=== PATIENT | female | born 1970 | race Caucasian/White ===

== ENCOUNTER 2020-05-20 17:22 | Observation (INO) | payer BC, MEDICAID ==
[2020-05-20] MEDS ORDERED: Sodium Chloride 0.9% 1,000 ML IV ONE (17:28)
[2020-05-20] MEDS ORDERED: HYDROmorphone 2 MG/ML SDV IVPUSH ONE (17:28)
[2020-05-20] MEDS ORDERED: Sodium Chloride 0.9% 10 ML Syringe FLUSH PRN (17:28)
[2020-05-20] MEDS ORDERED: Ondansetron 4 MG/2 ML SDV IVPUSH ONE (17:28)
--- NOTE | 2020-05-20 17:39 | EDM.PDOC ---
ED HPI GENERAL MEDICAL PROBLEM - General Chief Complaint: Abdominal Pain Stated Complaint: ABDOMINAL PAIN Time Seen by Provider: 05/20/20 17:30 Source of Information: Reports: Patient History Limitations: Reports: Other (Agitated) - History of Present Illness INITIAL COMMENTS - FREE TEXT/NARRATIVE: Presents with N/V/D and low abdominal pain since this morning. Patient admits to smoking methamphetamine @2 days ago. Denies IVDA or alcohol consumption. Prior surgical history includes appendectomy and knee surgeries x 6. PMHx includes rheumatoid arthritis and acute non-ischemic cardiomyopathy (08/2018). Endorses low back pain x 2 months. Denies chest pain. Onset: Today Location: Reports: Abdomen Quality: Reports: Ache Severity: Moderate - Related Data Allergies Allergy/AdvReac Type Severity Reaction Status Date / Time meperidine HCl [From Demerol] Allergy Unknown Cannot Verified 05/20/20 18:13 Remember Sulfa (Sulfonamide Allergy Unknown Cannot Verified 05/20/20 18:13 Antibiotics) Remember Home Meds: Home Meds Bumetanide 1 tab PO DAILY 09/18/18 [History] Norethindrone-Ethin. Estradiol [Nortrel 7-7-7-28 Tablet] 1 tab PO DAILY 09/18/18 [History] Past Medical History Cardiovascular History: Reports: Heart Failure (non-ischemic 08/2018). Denies: CAD [employer] History: Reports: Immunologic History: Reports: Other (See Below) (RA) - Past Surgical History Respiratory Surgical History: Reports: None Social & Family History - Family History Family Medical History: Noncontributory - Caffeine Use Caffeine Use: Reports: Soda - Recreational Drug Use Recreational Drug Use: Yes Recreational Drug Type: Reports: Amphetamines (Speed) ED ROS GENERAL - Review of Systems Review Of Systems: Comprehensive ROS is negative, except as noted in HPI. ED EXAM, GI/ABD - Physical Exam Exam: See Below Exam Limited By: No Limitations General Appearance: Alert, WD/WN, No Apparent Distress Throat/Mouth: No Airway Compromise Head: Atraumatic, Normocephalic Respiratory/Chest: No Respiratory Distress, Lungs Clear, Normal Breath Sounds Cardiovascular: Regular Rate, Rhythm, No Edema, No Gallop, No Murmur GI/Abdominal Exam: Normal Bowel Sounds, Soft, No Distention, Tender (suprapubic) Back Exam: CVA Tenderness (R), CVA Tenderness (L) Extremities: Normal Range of Motion, No Pedal Edema Neurological: Alert, Normal Cognition, No Motor/Sensory Deficits Psychiatric: Other (Agitated) Skin Exam: Warm, Dry, Intact Course - Vital Signs Last Recorded V/S: Last Vital Signs Temp 36.6 C 05/20/20 17:30 Pulse 90 05/20/20 17:30 Resp 15 05/20/20 17:30 BP 136/100 H 05/20/20 17:30 Pulse Ox 100 05/20/20 17:30 - Orders/Labs/Meds Orders: Active Orders 24 hr Category Date Time Status Jung Catheter Insertion [Insert Urinary Catheter] [OM. Care 05/20/20 18:15 Ordered PC] Q24H Urinary Catheter Assessment [RC] QSHIFT Care 05/20/20 18:02 Active Abdomen Pelvis wo Cont [CT] Stat Exams 05/20/20 18:35 Taken Head wo Cont [CT] Stat Exams 05/20/20 18:35 Taken CULTURE URINE [RM] Stat Lab 05/20/20 18:24 Ordered Potassium Chloride [KCL 20 MEQ in Water 100 ML] 20 meq Med 05/20/20 18:17 Active Premix Bag 1 bag IV ONETIME Sodium Chloride 0.9% [Saline Flush] Med 05/20/20 17:28 Active 10 ml FLUSH ASDIRECTED PRN Saline Lock Insert [OM.PC] Routine Oth 05/20/20 17:28 Ordered Medication Orders Potassium Chloride 20 meq/ (Premix) 100 mls @ 50 mls/hr IV ONETIME ONE Stop: 05/20/20 20:16 Last Admin: 05/20/20 19:19 Dose: 50 mls/hr Documented by: OCTAVIO Sodium Chloride (Saline Flush) 10 ml FLUSH ASDIRECTED PRN PRN Reason: Keep Vein Open Last Admin: 05/20/20 19:31 Dose: 10 ml Documented by: OCTAVIO Labs: Laboratory Tests 05/20/20 05/20/20 05/20/20 Range/Units 17:40 17:40 17:40 WBC 8.9 (4.5-12.0) X10-3/uL RBC 4.75 (3.23-5.20) x10(6)uL Hgb 13.1 (11.5-15.5) g/dL Hct 40.7 (30.0-51.3) % MCV 85.6 (80-96) fL MCH 27.5 L (27.7-33.6) pg MCHC 32.2 (32.2-35.4) g/dL RDW 13.3 (11.5-15.5) % Plt Count 368 (125-369) X10(3)uL MPV 8.0 (7.4-10.4) fL Neut % (Auto) 70.3 (46-82) % Lymph % (Auto) 19.5 (13-37) % Coleman % (Auto) 9.3 (4-12) % Eos % (Auto) 1 (1.0-5.0) % Baso % (Auto) 0 (0-2) % Neut # (Auto) 6.3 (1.6-8.3) # Lymph # (Auto) 1.7 (0.6-5.0) # Coleman # (Auto) 0.8 (0.0-1.3) # Eos # (Auto) 0.1 (0.0-0.8) # Baso # (Auto) 0.0 (0.0-0.2) # Sodium 141 (135-145) mmol/L Potassium 2.9 L (3.5-5.3) mmol/L Chloride 103 (100-110) mmol/L Carbon Dioxide 25 (21-32) mmol/L BUN 12 (7-18) mg/dL Creatinine 1.1 H (0.55-1.02) mg/dL Est Cr Clr Drug Dosing TNP Estimated GFR (MDRD) 53 L (>60) BUN/Creatinine Ratio 10.9 (9-20) Glucose 93 (80-116) mg/dL Calcium 8.9 (8.6-10.2) mg/dL Magnesium 2.0 (1.8-2.5) mg/dL Total Bilirubin 0.7 (0.1-1.3) mg/dL AST 24 D (5-25) IU/L ALT 7 L D (12-36) U/L Alkaline Phosphatase 73 (56-112) IU/L Total Protein 7.4 (6.0-8.0) g/dL Albumin 3.9 (3.5-5.2) g/dL Globulin 3.5 g/dL Albumin/Globulin Ratio 1.1 Lipase (73-393) U/L Urine Color (YELLOW) Urine Appearance (CLEAR) Urine pH (5.0-6.5) Ur Specific [place] (1.010-1.025) Urine Protein (NEGATIVE) mg/dL Urine Glucose (UA) (NORMAL) mg/dL Urine Ketones (NEGATIVE) mg/dL Urine Occult Blood (NEGATIVE) Urine Nitrite (NEGATIVE) Urine Bilirubin (NEGATIVE) Urine Urobilinogen (NEGATIVE) mg/dL Ur Leukocyte Esterase (NEGATIVE) Urine RBC (0-5) Urine WBC (0-5) Ur Squamous Epith Cells (NS,R,O) Calcium Oxalate Crystal (NS) Urine Bacteria (NS) Urine HCG, Qual (NEGATIVE) Urine Opiates Screen (NEGATIVE) Ur Oxycodone Screen (NEGATIVE) Ur Propoxyphene Screen (NEGATIVE) Ur Barbituates Screen (NEGATIVE) Ur Tricyclics Screen (NEGATIVE) Ur Phencyclidine Scrn (NEGATIVE) Ur Amphetamine Screen (NEGATIVE) Urine MDMA Screen (NEGATIVE) U Benzodiazepines Scrn (NEGATIVE) U Cocaine Metab Screen (NEGATIVE) U Marijuana (THC) Screen (NEGATIVE) Ethyl Alcohol (<0.03) % 05/20/20 05/20/20 05/20/20 Range/Units 17:40 18:15 18:15 WBC (4.5-12.0) X10-3/uL RBC (3.23-5.20) x10(6)uL Hgb (11.5-15.5) g/dL Hct (30.0-51.3) % MCV (80-96) fL MCH (27.7-33.6) pg MCHC (32.2-35.4) g/dL RDW (11.5-15.5) % Plt Count (125-369) X10(3)uL MPV (7.4-10.4) fL Neut % (Auto) (46-82) % Lymph % (Auto) (13-37) % Coleman % (Auto) (4-12) % Eos % (Auto) (1.0-5.0) % Baso % (Auto) (0-2) % Neut # (Auto) (1.6-8.3) # Lymph # (Auto) (0.6-5.0) # Coleman # (Auto) (0.0-1.3) # Eos # (Auto) (0.0-0.8) # Baso # (Auto) (0.0-0.2) # Sodium (135-145) mmol/L Potassium (3.5-5.3) mmol/L Chloride (100-110) mmol/L Carbon Dioxide (21-32) mmol/L BUN (7-18) mg/dL Creatinine (0.55-1.02) mg/dL Est Cr Clr Drug Dosing Estimated GFR (MDRD) (>60) BUN/Creatinine Ratio (9-20) Glucose (80-116) mg/dL Calcium (8.6-10.2) mg/dL Magnesium (1.8-2.5) mg/dL Total Bilirubin (0.1-1.3) mg/dL AST (5-25) IU/L ALT (12-36) U/L Alkaline Phosphatase (56-112) IU/L Total Protein (6.0-8.0) g/dL Albumin (3.5-5.2) g/dL Globulin g/dL Albumin/Globulin Ratio Lipase 119 (73-393) U/L Urine Color Yellow (YELLOW) Urine Appearance Clear (CLEAR) Urine pH 6.0 (5.0-6.5) Ur Specific [place] 1.015 (1.010-1.025) Urine Protein Negative (NEGATIVE) mg/dL Urine Glucose (UA) Normal (NORMAL) mg/dL Urine Ketones 15 H (NEGATIVE) mg/dL Urine Occult Blood Negative (NEGATIVE) Urine Nitrite Positive H (NEGATIVE) Urine Bilirubin Negative (NEGATIVE) Urine Urobilinogen Normal (NEGATIVE) mg/dL Ur Leukocyte Esterase Large H (NEGATIVE) Urine RBC 5-10 H (0-5) Urine WBC 10-20 H (0-5) Ur Squamous Epith Cells Occasional (NS,R,O) Calcium Oxalate Crystal Few H (NS) Urine Bacteria Moderate H (NS) Urine HCG, Qual Negative (NEGATIVE) Urine Opiates Screen (NEGATIVE) Ur Oxycodone Screen (NEGATIVE) Ur Propoxyphene Screen (NEGATIVE) Ur Barbituates Screen (NEGATIVE) Ur Tricyclics Screen (NEGATIVE) Ur Phencyclidine Scrn (NEGATIVE) Ur Amphetamine Screen (NEGATIVE) Urine MDMA Screen (NEGATIVE) U Benzodiazepines Scrn (NEGATIVE) U Cocaine Metab Screen (NEGATIVE) U Marijuana (THC) Screen (NEGATIVE) Ethyl Alcohol < 0.03 (<0.03) % 05/20/20 Range/Units 18:15 WBC (4.5-12.0) X10-3/uL RBC (3.23-5.20) x10(6)uL Hgb (11.5-15.5) g/dL Hct (30.0-51.3) % MCV (80-96) fL MCH (27.7-33.6) pg MCHC (32.2-35.4) g/dL RDW (11.5-15.5) % Plt Count (125-369) X10(3)uL MPV (7.4-10.4) fL Neut % (Auto) (46-82) % Lymph % (Auto) (13-37) % Coleman % (Auto) (4-12) % Eos % (Auto) (1.0-5.0) % Baso % (Auto) (0-2) % Neut # (Auto) (1.6-8.3) # Lymph # (Auto) (0.6-5.0) # Coleman # (Auto) (0.0-1.3) # Eos # (Auto) (0.0-0.8) # Baso # (Auto) (0.0-0.2) # Sodium (135-145) mmol/L Potassium (3.5-5.3) mmol/L Chloride (100-110) mmol/L Carbon Dioxide (21-32) mmol/L BUN (7-18) mg/dL Creatinine (0.55-1.02) mg/dL Est Cr Clr Drug Dosing Estimated GFR (MDRD) (>60) BUN/Creatinine Ratio (9-20) Glucose (80-116) mg/dL Calcium (8.6-10.2) mg/dL Magnesium (1.8-2.5) mg/dL Total Bilirubin (0.1-1.3) mg/dL AST (5-25) IU/L ALT (12-36) U/L Alkaline Phosphatase (56-112) IU/L Total Protein (6.0-8.0) g/dL Albumin (3.5-5.2) g/dL Globulin g/dL Albumin/Globulin Ratio Lipase (73-393) U/L Urine Color (YELLOW) Urine Appearance (CLEAR) Urine pH (5.0-6.5) Ur Specific [place] (1.010-1.025) Urine Protein (NEGATIVE) mg/dL Urine Glucose (UA) (NORMAL) mg/dL Urine Ketones (NEGATIVE) mg/dL Urine Occult Blood (NEGATIVE) Urine Nitrite (NEGATIVE) Urine Bilirubin (NEGATIVE) Urine Urobilinogen (NEGATIVE) mg/dL Ur Leukocyte Esterase (NEGATIVE) Urine RBC (0-5) Urine WBC (0-5) Ur Squamous Epith Cells (NS,R,O) Calcium Oxalate Crystal (NS) Urine Bacteria (NS) Urine HCG, Qual (NEGATIVE) Urine Opiates Screen Negative (NEGATIVE) Ur Oxycodone Screen Negative (NEGATIVE) Ur Propoxyphene Screen Negative (NEGATIVE) Ur Barbituates Screen Negative (NEGATIVE) Ur Tricyclics Screen Negative (NEGATIVE) Ur Phencyclidine Scrn Negative (NEGATIVE) Ur Amphetamine Screen Positive H (NEGATIVE) Urine MDMA Screen Negative (NEGATIVE) U Benzodiazepines Scrn Negative (NEGATIVE) U Cocaine Metab Screen Negative (NEGATIVE) U Marijuana (THC) Screen Negative (NEGATIVE) Ethyl Alcohol (<0.03) % Meds: Medications Generic Name Dose Route Start Last Admin Trade Name Freq PRN Reason Stop Dose Admin Potassium Chloride 20 meq/ 100 mls @ 50 mls/hr 05/20/20 18:17 05/20/20 19:19 Premix IV 05/20/20 20:16 50 mls/hr ONETIME ONE Administration Sodium Chloride 10 ml 05/20/20 17:28 05/20/20 19:31 Saline Flush FLUSH 10 ml ASDIRECTED PRN Administration Keep Vein Open Discontinued Medications Generic Name Dose Route Start Last Admin Trade Name Freq PRN Reason Stop Dose Admin Ceftriaxone Sodium 1 gm 05/20/20 18:25 05/20/20 19:19 Rocephin IVPUSH 05/20/20 18:26 1 gm ONETIME ONE Administration Hydromorphone HCl 0.5 mg 05/20/20 17:28 05/20/20 17:34 Dilaudid IVPUSH 05/20/20 17:29 0.5 mg ONETIME ONE Administration Sodium Chloride 1,000 mls @ 999 mls/hr 05/20/20 17:28 05/20/20 18:16 Normal Saline IV 05/20/20 18:28 50 mls/hr .BOLUS ONE Infusion Lorazepam 1 mg 05/20/20 17:56 05/20/20 18:00 Ativan IVPUSH 05/20/20 17:57 1 mg ONETIME ONE Administration Lorazepam Confirm 05/20/20 17:58 05/20/20 19:16 Ativan Administered 05/20/20 17:59 Not Given Dose 2 mg .ROUTE .STK-MED ONE Ondansetron HCl 4 mg 05/20/20 17:28 05/20/20 17:49 Zofran IVPUSH 05/20/20 17:29 4 mg ONETIME ONE Administration - Radiology Interpretation Free Text/Narrative:: CT of the abdomen and pelvis. No intravenous contrast. Coronal/sagittal reconstruction images. FINDINGS: Lung bases: There is bibasilar dependent atelectasis. There is no acute airspace disease. There is no basilar pneumothorax. Abdomen/pelvis: No solid hepatic mass. The hepatic morphology is normal. There is no common bile duct stone or mass. The spleen size is normal. There is an indeterminate, hyperdense lesion in the left kidney, superior pole, which measures 7 mm. This is seen on image set 38, series 2. This could represent a hemorrhagic cyst. There are indeterminate calcifications present in the left adrenal gland. This is seen on image 36, series 2. There is no obstructive urolith. The urinary bladder is normal. There is an indeterminate pelvic calcification, which is seen best on image 129, series 2. There is no free intraperitoneal air. There is no evidence for a small bowel or colonic obstruction. There is no pneumatosis. There is no portal venous gas. There is no drainable fluid collection or pneumoperitoneum. The patient is reportedly post appendectomy. There are no right lower quadrant inflammatory changes. There are nonenlarged lymph nodes present in the pelvis. There is no pelvic sidewall lymphadenopathy. The retroperitoneum and gastrohepatic ligament are normal. The bone windows demonstrate a sclerotic lesion in the right sacral ala, which appears benign, measuring 5 mm. There are no suspicious bone lesions by CT. On sagittal reconstruction images, there are deformities present at the superior endplates of T12 and L1. These could represent compression deformities or Schmorl`s nodes. IMPRESSION: 1. There is no small bowel or colonic obstruction. 2. There is no pneumoperitoneum or drainable fluid collection. 3. Hyperdense, sub centimeter lesion in the superior pole of the left kidney. This may represent a hemorrhagic cyst. Ultrasound is suggested on a nonemergent basis. 4. Compression deformities at the thoracolumbar junction. Middle and posterior columns appear intact. Suggest correlation with physical exam findings to determine acuity. Dictated by Anish Overton MD @ 05/20/2020 7:33:[address] head without contrast. COMPARISON: None FINDINGS: CSF spaces: Within normal limits for age. Brain parenchyma: The mccormick-white differentiation is normal. No sign of mass, hemorrhage, or midline shift. Skull base and calvarium: The visualized paranasal sinuses and mastoid air cells demonstrate no acute or significant findings. The visualized orbits are grossly unremarkable. No skull fractures. IMPRESSION: Unremarkable noncontrast head CT. Please note that all CT scans at this facility use dose modulation, iterative reconstruction, and/or weight-based dosing when appropriate to reduce radiation dose to as low as reasonably achievable. Dictated by Radha Adams MD @ May 20 2020 7:30PM - Re-Assessments/Exams Free Text/Narrative Re-Assessment/Exam: 05/20/20 17:55 Pain and agitation did not improve after Dilaudid 0.5mg IV. 05/20/20 18:20 Agitation improved after Ativan 1mg IV, however Sa02 dropped to 72% RA with RR 5-7. Sa02 improved to 100% on 4L 02 and RR increased to 17 with stimulation. 05/20/20 19:40 Patient somnolent. BP 120/68, HR 81, RR 18, Sa02 100% on 2L O2. Departure - Departure Time of Disposition: 19:43 Disposition: Refer to Observation Condition: Fair Clinical Impression: Gastroenteritis, Methamphetamine abuse, Metabolic encephalopathy, Hypokalemia UTI (urinary tract infection) Qualifiers: Urinary tract infection type: acute cystitis Hematuria presence: with hematuria Qualified Code(s): N30.01 - Acute cystitis with hematuria - Discharge Information *PRESCRIPTION DRUG MONITORING PROGRAM REVIEWED*: Yes *COPY OF PRESCRIPTION DRUG MONITORING REPORT IN PATIENT RASHAAD: Not Applicable Referrals: PCP,None [Primary Care Provider] - Forms: ED Department Discharge Sepsis Event Note (ED) - Focused Exam Vital Signs: Vital Signs Temp Pulse Resp BP Pulse Ox 05/20/20 17:30 36.6 C 90 15 136/100 H 100 - My Orders Last 24 Hours: My Active Orders 05/20/20 17:28 Sodium Chloride 0.9% [Saline Flush] 10 ml FLUSH ASDIRECTED PRN Saline Lock Insert [OM.PC] Routine 05/20/20 18:02 Urinary Catheter Assessment [RC] QSHIFT 05/20/20 18:15 Jung Catheter Insertion [Insert Urinary Catheter] [OM.PC] Q24H 05/20/20 18:17 Potassium Chloride [KCL 20 MEQ in Water 100 ML] 20 meq Premix Bag 1 bag IV ONETIME 05/20/20 18:24 CULTURE URINE [RM] Stat 05/20/20 18:35 Abdomen Pelvis wo Cont [CT] Stat Head wo Cont [CT] Stat - Assessment/Plan Last 24 Hours: My Active Orders 05/20/20 17:28 Sodium Chloride 0.9% [Saline Flush] 10 ml FLUSH ASDIRECTED PRN Saline Lock Insert [OM.PC] Routine 05/20/20 18:02 Urinary Catheter Assessment [RC] QSHIFT 05/20/20 18:15 Jung Catheter Insertion [Insert Urinary Catheter] [OM.PC] Q24H 05/20/20 18:17 Potassium Chloride [KCL 20 MEQ in Water 100 ML] 20 meq Premix Bag 1 bag IV ONETIME 05/20/20 18:24 CULTURE URINE [RM] Stat 05/20/20 18:35 Abdomen Pelvis wo Cont [CT] Stat Head wo Cont [CT] Stat
[2020-05-20] MEDS ORDERED: LORazepam 2 MG/ML SDV IVPUSH ONE (17:56)
[2020-05-20] MEDS ORDERED: LORazepam 2 MG/ML SDV ONE (17:58)
[2020-05-20] MEDS ORDERED: Potassium Chloride 20 MEQ in Premix Bag 1 BAG IV ONE (18:17)
[2020-05-20] MEDS ORDERED: cefTRIAXone 1 GM Vial IVPUSH ONE (18:25)
[2020-05-20] MEDS ORDERED: Ondansetron 4 MG/2 ML SDV IV PRN (19:57)
[2020-05-20] MEDS ORDERED: LORazepam 2 MG/ML SDV IV PRN (19:57)
[2020-05-20] MEDS ORDERED: D5 1/2 NS w/ 20 mEq/L KCl 1,000 ML IV SCH (21:00)
--- NOTE | 2020-05-21 08:04 | PCM.HP.2 ---
H&P History of Present Illness - General Date of Service: 05/21/20 Admit Problem/Dx: Admission Diagnosis/Problem Admission Diagnosis/Problem Gastroenteritis Source of Information: Patient, EMS Notes Reviewed History Limitations: Reports: No Limitations - History of Present Illness Initial Comments - Free Text/Narative: This is a 49-year-old female patient that came to the ER with intense abdominal pain, vomiting and diarrhea. She says she felt cold but no fevers. She had no exposures. She was evaluated in the ER and admitted. She was found to have a UTI, hypokalemia. Pain control was difficult from the ER notes. Patient feels little bit better today. She has a history of using methamphetamine 2 days ago. She says she has used in the past but is getting less and less per she's never been to treatment. She is alcohol occasionally no other illegal drugs she doesn't smoke. She says she is gone through menopause but is wondering if she was she is sexually active somewhat so that's when she came to the ER last night. Urine was negative. - Related Data Allergies/Adverse Reactions: Allergies Allergy/AdvReac Type Severity Reaction Status Date / Time meperidine HCl [From Demerol] Allergy Unknown Cannot Verified 05/20/20 18:13 Remember Sulfa (Sulfonamide Allergy Unknown Cannot Verified 05/20/20 18:13 Antibiotics) Remember Home Medications: Home Meds Bumetanide 1 tab PO DAILY 09/18/18 [History] Norethindrone-Ethin. Estradiol [Nortrel 7-7-7-28 Tablet] 1 tab PO DAILY 09/18/18 [History] Past Medical History - Past Health History Medical/Surgical History: Denies Medical/Surgical History Cardiovascular History: Reports: Heart Failure Respiratory History: Reports: SOB [employer] History: Reports: Psychiatric History: Reports: ADD Immunologic History: Reports: Other (See Below) - Past Surgical History Respiratory Surgical History: Reports: None Social & Family History - Family History Family Medical History: Noncontributory - Tobacco Use Smoking Status *Q: Current Status Unknown Tobacco Use Comment: unable to obtain clear information as of this time but patient denies smoking. Second Hand Smoke Exposure: Yes - Caffeine Use Caffeine Use: Reports: Soda Caffeine Use Comment: unable to obtain this information as of this time. - Recreational Drug Use Recreational Drug Use: Yes Recreational Drug Type: Reports: Amphetamines (Speed) H&P Review of Systems - Review of Systems: Review Of Systems: See Below General: Reports: Chills, Weakness. Denies: Fever HEENT: Reports: No Symptoms Pulmonary: Reports: No Symptoms Cardiovascular: Reports: No Symptoms Gastrointestinal: Reports: Abdominal Pain, Diarrhea, Nausea, Vomiting. Denies: Black Stool, Bloody Stool, Hematemesis Genitourinary: Reports: No Symptoms Musculoskeletal: Reports: No Symptoms Skin: Reports: No Symptoms Psychiatric: Reports: No Symptoms Neurological: Reports: No Symptoms Hematologic/Lymphatic: Reports: No Symptoms Immunologic: Reports: No Symptoms Exam - Exam Exam: See Below - Vital Signs Vital Signs: Last Vital Signs Temp 97.4 F 05/21/20 00:17 Pulse 72 05/21/20 00:17 Resp 16 05/21/20 00:17 BP 144/56 H 05/21/20 00:17 Pulse Ox 100 05/21/20 07:13 Weight: 98 lb - Exam General: Alert, Oriented, Cooperative HEENT: Hearing Intact, Posterior Pharynx Clear, TMs Clear, Other (Gingiva normal) Neck: Supple, Trachea Midline Lungs: Clear to Auscultation, Normal Respiratory Effort Cardiovascular: Regular Rate, Regular Rhythm. No: Systolic Murmur GI/Abdominal Exam: Normal Bowel Sounds, Guarding, Tender (Mildly to palpation). No: Rigid Extremities: No Pedal Edema Neurological: Normal Speech, Normal Tone Neuro Extensive - Mental Status: Alert, Oriented x3, Normal Mood/Affect, Normal Cognition, Memory Intact - Patient Data Lab Results Last 24 hrs: Laboratory Results - last 24 hr 05/20/20 05/20/20 05/20/20 Range/Units 17:40 17:40 17:40 WBC 8.9 (4.5-12.0) X10-3/uL RBC 4.75 (3.23-5.20) x10(6)uL Hgb 13.1 (11.5-15.5) g/dL Hct 40.7 (30.0-51.3) % MCV 85.6 (80-96) fL MCH 27.5 L (27.7-33.6) pg MCHC 32.2 (32.2-35.4) g/dL RDW 13.3 (11.5-15.5) % Plt Count 368 (125-369) X10(3)uL MPV 8.0 (7.4-10.4) fL Neut % (Auto) 70.3 (46-82) % Lymph % (Auto) 19.5 (13-37) % [place] % (Auto) 9.3 (4-12) % Eos % (Auto) 1 (1.0-5.0) % Baso % (Auto) 0 (0-2) % Neut # (Auto) 6.3 (1.6-8.3) # Lymph # (Auto) 1.7 (0.6-5.0) # [place]royo # (Auto) 0.8 (0.0-1.3) # Eos # (Auto) 0.1 (0.0-0.8) # Baso # (Auto) 0.0 (0.0-0.2) # Sodium 141 (135-145) mmol/L Potassium 2.9 L (3.5-5.3) mmol/L Chloride 103 (100-110) mmol/L Carbon Dioxide 25 (21-32) mmol/L BUN 12 (7-18) mg/dL Creatinine 1.1 H (0.55-1.02) mg/dL Est Cr Clr Drug Dosing TNP Estimated GFR (MDRD) 53 L (>60) BUN/Creatinine Ratio 10.9 (9-20) Glucose 93 (80-116) mg/dL Calcium 8.9 (8.6-10.2) mg/dL Magnesium 2.0 (1.8-2.5) mg/dL Total Bilirubin 0.7 (0.1-1.3) mg/dL AST 24 D (5-25) IU/L ALT 7 L D (12-36) U/L Alkaline Phosphatase 73 (56-112) IU/L Total Protein 7.4 (6.0-8.0) g/dL Albumin 3.9 (3.5-5.2) g/dL Globulin 3.5 g/dL Albumin/Globulin Ratio 1.1 Lipase (73-393) U/L Urine Color (YELLOW) Urine Appearance (CLEAR) Urine pH (5.0-6.5) Ur Specific [place] (1.010-1.025) Urine Protein (NEGATIVE) mg/dL Urine Glucose (UA) (NORMAL) mg/dL Urine Ketones (NEGATIVE) mg/dL Urine Occult Blood (NEGATIVE) Urine Nitrite (NEGATIVE) Urine Bilirubin (NEGATIVE) Urine Urobilinogen (NEGATIVE) mg/dL Ur Leukocyte Esterase (NEGATIVE) Urine RBC (0-5) Urine WBC (0-5) Ur Squamous Epith Cells (NS,R,O) Calcium Oxalate Crystal (NS) Urine Bacteria (NS) Urine HCG, Qual (NEGATIVE) Urine Opiates Screen (NEGATIVE) Ur Oxycodone Screen (NEGATIVE) Ur Propoxyphene Screen (NEGATIVE) Ur Barbituates Screen (NEGATIVE) Ur Tricyclics Screen (NEGATIVE) Ur Phencyclidine Scrn (NEGATIVE) Ur Amphetamine Screen (NEGATIVE) Urine MDMA Screen (NEGATIVE) U Benzodiazepines Scrn (NEGATIVE) U Cocaine Metab Screen (NEGATIVE) U Marijuana (THC) Screen (NEGATIVE) Ethyl Alcohol (<0.03) % 05/20/20 05/20/20 05/20/20 Range/Units 17:40 18:15 18:15 WBC (4.5-12.0) X10-3/uL RBC (3.23-5.20) x10(6)uL Hgb (11.5-15.5) g/dL Hct (30.0-51.3) % MCV (80-96) fL MCH (27.7-33.6) pg MCHC (32.2-35.4) g/dL RDW (11.5-15.5) % Plt Count (125-369) X10(3)uL MPV (7.4-10.4) fL Neut % (Auto) (46-82) % Lymph % (Auto) (13-37) % [place] % (Auto) (4-12) % Eos % (Auto) (1.0-5.0) % Baso % (Auto) (0-2) % Neut # (Auto) (1.6-8.3) # Lymph # (Auto) (0.6-5.0) # [place] # (Auto) (0.0-1.3) # Eos # (Auto) (0.0-0.8) # Baso # (Auto) (0.0-0.2) # Sodium (135-145) mmol/L Potassium (3.5-5.3) mmol/L Chloride (100-110) mmol/L Carbon Dioxide (21-32) mmol/L BUN (7-18) mg/dL Creatinine (0.55-1.02) mg/dL Est Cr Clr Drug Dosing Estimated GFR (MDRD) (>60) BUN/Creatinine Ratio (9-20) Glucose (80-116) mg/dL Calcium (8.6-10.2) mg/dL Magnesium (1.8-2.5) mg/dL Total Bilirubin (0.1-1.3) mg/dL AST (5-25) IU/L ALT (12-36) U/L Alkaline Phosphatase (56-112) IU/L Total Protein (6.0-8.0) g/dL Albumin (3.5-5.2) g/dL Globulin g/dL Albumin/Globulin Ratio Lipase 119 (73-393) U/L Urine Color Yellow (YELLOW) Urine Appearance Clear (CLEAR) Urine pH 6.0 (5.0-6.5) Ur Specific [place] 1.015 (1.010-1.025) Urine Protein Negative (NEGATIVE) mg/dL Urine Glucose (UA) Normal (NORMAL) mg/dL Urine Ketones 15 H (NEGATIVE) mg/dL Urine Occult Blood Negative (NEGATIVE) Urine Nitrite Positive H (NEGATIVE) Urine Bilirubin Negative (NEGATIVE) Urine Urobilinogen Normal (NEGATIVE) mg/dL Ur Leukocyte Esterase Large H (NEGATIVE) Urine RBC 5-10 H (0-5) Urine WBC 10-20 H (0-5) Ur Squamous Epith Cells Occasional (NS,R,O) Calcium Oxalate Crystal Few H (NS) Urine Bacteria Moderate H (NS) Urine HCG, Qual Negative (NEGATIVE) Urine Opiates Screen (NEGATIVE) Ur Oxycodone Screen (NEGATIVE) Ur Propoxyphene Screen (NEGATIVE) Ur Barbituates Screen (NEGATIVE) Ur Tricyclics Screen (NEGATIVE) Ur Phencyclidine Scrn (NEGATIVE) Ur Amphetamine Screen (NEGATIVE) Urine MDMA Screen (NEGATIVE) U Benzodiazepines Scrn (NEGATIVE) U Cocaine Metab Screen (NEGATIVE) U Marijuana (THC) Screen (NEGATIVE) Ethyl Alcohol < 0.03 (<0.03) % 05/20/20 05/21/20 05/21/20 Range/Units 18:15 07:04 07:04 WBC 6.6 (4.5-12.0) X10-3/uL RBC 4.42 (3.23-5.20) x10(6)uL Hgb 12.4 (11.5-15.5) g/dL Hct 38.3 (30.0-51.3) % MCV 86.6 (80-96) fL MCH 28.1 (27.7-33.6) pg MCHC 32.5 (32.2-35.4) g/dL RDW 13.4 (11.5-15.5) % Plt Count 298 (125-369) X10(3)uL MPV 7.7 (7.4-10.4) fL Neut % (Auto) 66.7 (46-82) % Lymph % (Auto) 23.4 (13-37) % [place] % (Auto) 7.6 (4-12) % Eos % (Auto) 2 (1.0-5.0) % Baso % (Auto) 1 (0-2) % Neut # (Auto) 4.5 (1.6-8.3) # Lymph # (Auto) 1.5 (0.6-5.0) # [place] # (Auto) 0.5 (0.0-1.3) # Eos # (Auto) 0.1 (0.0-0.8) # Baso # (Auto) 0.0 (0.0-0.2) # Sodium 141 (135-145) mmol/L Potassium 3.5 (3.5-5.3) mmol/L Chloride 107 (100-110) mmol/L Carbon Dioxide 30 (21-32) mmol/L BUN 8 (7-18) mg/dL Creatinine 1.0 (0.55-1.02) mg/dL Est Cr Clr Drug Dosing 48.28 Estimated GFR (MDRD) 59 L (>60) BUN/Creatinine Ratio 8.0 L (9-20) Glucose 92 (80-116) mg/dL Calcium 8.3 L (8.6-10.2) mg/dL Magnesium (1.8-2.5) mg/dL Total Bilirubin (0.1-1.3) mg/dL AST (5-25) IU/L ALT (12-36) U/L Alkaline Phosphatase (56-112) IU/L Total Protein (6.0-8.0) g/dL Albumin (3.5-5.2) g/dL Globulin g/dL Albumin/Globulin Ratio Lipase (73-393) U/L Urine Color (YELLOW) Urine Appearance (CLEAR) Urine pH (5.0-6.5) Ur Specific [place] (1.010-1.025) Urine Protein (NEGATIVE) mg/dL Urine Glucose (UA) (NORMAL) mg/dL Urine Ketones (NEGATIVE) mg/dL Urine Occult Blood (NEGATIVE) Urine Nitrite (NEGATIVE) Urine Bilirubin (NEGATIVE) Urine Urobilinogen (NEGATIVE) mg/dL Ur Leukocyte Esterase (NEGATIVE) Urine RBC (0-5) Urine WBC (0-5) Ur Squamous Epith Cells (NS,R,O) Calcium Oxalate Crystal (NS) Urine Bacteria (NS) Urine HCG, Qual (NEGATIVE) Urine Opiates Screen Negative (NEGATIVE) Ur Oxycodone Screen Negative (NEGATIVE) Ur Propoxyphene Screen Negative (NEGATIVE) Ur Barbituates Screen Negative (NEGATIVE) Ur Tricyclics Screen Negative (NEGATIVE) Ur Phencyclidine Scrn Negative (NEGATIVE) Ur Amphetamine Screen Positive H (NEGATIVE) Urine MDMA Screen Negative (NEGATIVE) U Benzodiazepines Scrn Negative (NEGATIVE) U Cocaine Metab Screen Negative (NEGATIVE) U Marijuana (THC) Screen Negative (NEGATIVE) Ethyl Alcohol (<0.03) % Result Diagrams: 05/21/20 07:04 05/21/20 07:04 Sepsis Event Note - Evaluation Sepsis Screening Result: No Definite Risk - Focused Exam Vital Signs: Vital Signs Temp Pulse Resp BP Pulse Ox 05/21/20 07:13 100 05/21/20 00:17 97.4 F 72 16 144/56 H 99 05/20/20 20:08 96.5 F L 74 14 142/52 H 99 05/20/20 19:58 98 Date Exam was Performed: 05/21/20 Time Exam was Performed: 07:57 - Problem List (1) Gastroenteritis SNOMED Code(s): 29003266 ICD Code: K52.9 - NONINFECTIVE GASTROENTERITIS AND COLITIS, UNSPECIFIED Status: Acute Current Visit: Yes (2) Hypokalemia SNOMED Code(s): 69781381 ICD Code: E87.6 - HYPOKALEMIA Status: Acute Current Visit: Yes (3) Metabolic encephalopathy SNOMED Code(s): 03958772 ICD Code: G93.41 - METABOLIC ENCEPHALOPATHY Status: Acute Current Visit: Yes (4) Methamphetamine abuse SNOMED Code(s): 109619613 ICD Code: F15.10 - OTHER STIMULANT ABUSE, UNCOMPLICATED Status: Acute Current Visit: Yes (5) UTI (urinary tract infection) SNOMED Code(s): 31266323 ICD Code: N39.0 - URINARY TRACT INFECTION, SITE NOT SPECIFIED Status: Acute Current Visit: Yes Qualifiers: Urinary tract infection type: acute cystitis Hematuria presence: with hematuria Qualified Code(s): N30.01 - Acute cystitis with hematuria Problem List Initiated/Reviewed/Updated: Yes Orders Last 24hrs: Active Orders 24 hr Category Date Time Status Admission Status [Patient Status] [ADT] Routine ADT 05/20/20 19:41 Active Ambulate [RC] ASDIRECTED Care 05/20/20 19:57 Active Bedrest Bathroom Privileges [RC] ASDIRECTED Care 05/20/20 19:57 Active Cardiac Monitoring [RC] CONTINUOUS Care 05/20/20 19:58 Active EKG Documentation Completion [RC] ASDIRECTED Care 05/20/20 19:49 Active Jung Catheter Insertion [Insert Urinary Catheter] [OM. Care 05/20/20 18:15 Ordered PC] Q24H Height and Weight [RC] DAILY Care 05/20/20 19:57 Active Intake and Output [RC] QSHIFT Care 05/20/20 19:57 Active Notify Provider Vital Signs [RC] ASDIRECTED Care 05/20/20 19:58 Active Oxygen Therapy [RC] PRN Care 05/20/20 19:57 Active Pulse Oximetry [RC] CONTINUOUS Care 05/20/20 19:58 Active Up With Assistance [RC] ASDIRECTED Care 05/20/20 19:57 Active VTE/DVT Education [RC] Per Unit Routine Care 05/20/20 19:57 Active Vital Signs [RC] QSHIFT Care 05/20/20 19:57 Active Heart Healthy Diet [DIET] Diet 05/21/20 Breakfast Active Abdomen Pelvis wo Cont [CT] Stat Exams 05/20/20 18:35 Taken Head wo Cont [CT] Stat Exams 05/20/20 18:35 Taken CULTURE URINE [RM] Stat Lab 05/20/20 18:09 Received D5 1/2 NS w/ 20 mEq/L KCl 1,000 ml Med 05/20/20 21:00 Active IV ASDIRECTED LORazepam [Ativan] Med 05/20/20 19:57 Active 1 mg IV Q8H PRN Ondansetron [Zofran] Med 05/20/20 19:57 Active 4 mg IV Q8H PRN Sodium Chloride 0.9% [Saline Flush] Med 05/20/20 17:28 Active 10 ml FLUSH ASDIRECTED PRN cefTRIAXone [Rocephin] 1 gm Med 05/21/20 18:00 Active Sodium Chloride 0.9% [Normal Saline] 50 ml IV Q24H Saline Lock Insert [OM.PC] Routine Oth 05/20/20 17:28 Ordered Resuscitation Status Routine Resus Stat 05/20/20 19:57 Ordered EKG 12 Lead [EK] Stat Ther 05/20/20 19:49 Ordered Medication Orders Potassium Chloride/Dextrose/Sod Cl (D5 1/2 Ns W/ 20 Meq/L Kcl) 1,000 mls @ 75 mls/hr IV ASDIRECTED [facility] Last Admin: 05/20/20 22:02 Dose: 75 mls/hr Documented by: GIOVANNA Ceftriaxone Sodium 1 gm/ (Sodium Chloride) 50 mls @ 200 mls/hr IV Q24H [facility] Lorazepam (Ativan) 1 mg IV Q8H PRN PRN Reason: Agitation Ondansetron HCl (Zofran) 4 mg IV Q8H PRN PRN Reason: Nausea/Vomiting Sodium Chloride (Saline Flush) 10 ml FLUSH ASDIRECTED PRN PRN Reason: Keep Vein Open Last Admin: 05/20/20 19:31 Dose: 10 ml Documented by: OCTAVIO Assessment/Plan Comment:: 1. Admit for observation. 2. IV fluids and correct potassium. 3. Up ad tricia. 4. Continue home meds. 5. Regular diet. 6. Pain medicine per the admitting doctor. 7. VTE prophylaxis. I'm going to wait to see if she stays here. If she goes home we will needed. 8. CT scan showed probable cyst on her kidney. I talk to the patient about this and she should've a follow-up ultrasound in the clinic. 9. Discussed her meth amphetamine use. She says she is cutting down. As her she's ever consider treatment. She states she's been talk to her boyfriend about it recently. She says she only does it because she is bored. I recommend that she have an evaluation for this outpatient. Her mother called and wants her but and treatment. The patient states that she does not want us to release any information to her mother. - Mortality Measure Prognosis:: Good
[2020-05-21] MEDS ORDERED: Ondansetron 4 MG Tab.DIS PO PRN (08:06)
[2020-05-21] MEDS ORDERED: Ibuprofen 600 MG Tab PO PRN (09:59)
[2020-05-21] MEDS ORDERED: Loperamide 2 MG Cap PO PRN (09:59)
[2020-05-21] MEDS: Ciprofloxacin 500 MG Tab PO SCH ×2 (10:06→19:59)
[2020-05-21] MEDS ORDERED: traMADol 50 MG Tab PO PRN (12:22)
--- NOTE | 2020-05-21 17:34 | PCM.DCSUM1 ---
Discharge Summary - Hospital Course Free Text/Narrative:: Hospital course-CT abdomen and pelvis showed probable cysts of the kidneys they recommend renal ultrasound for verification. Patient had IV fluids and was washed the night. The next day she had diarrhea but her belly pain was much improved. She had no dysuria, pyuria, hematuria she has some back pain and was treated with tramadol and that helped. Patient's not taken hardly any of her medications. They were not restarted. She sees cardiology and [place]. Her primary provider has moved to [place]. She is seen Deny Gordon in the past. She wants STD check before she goes. We did talk to her about treatment and she'll consider it. As for her meth use. Brief History: Initial Comments - Free Text/Narative: This is a 49-year-old female patient that came to the ER with intense abdominal pain, vomiting and diarrhea. She says she felt cold but no fevers. She had no exposures. She was evaluated in the ER and admitted. She was found to have a UTI, hypokalemia. Pain control was difficult from the ER notes. Patient feels little bit better today. She has a history of using methamphetamine 2 days ago. She says she has used in the past but is getting less and less per she's never been to treatment. She is alcohol occasionally no other illegal drugs she doesn't smoke. She says she is gone through menopause but is wondering if she was she is sexually active somewhat so that's when she came to the ER last night. Urine was negative. Diagnosis: Stroke: No - Discharge Data Discharge Date: 05/21/20 Discharge Disposition: Home, Self-Care 01 Condition: Fair - Referral to Home Health Primary Care Physician: PCP None - Discharge Diagnosis/Problem(s) (1) Gastroenteritis SNOMED Code(s): 65582555 ICD Code: K52.9 - NONINFECTIVE GASTROENTERITIS AND COLITIS, UNSPECIFIED S tatus: Acute Current Visit: Yes (2) Hypokalemia SNOMED Code(s): 90266019 ICD Code: E87.6 - HYPOKALEMIA Status: Acute Current Visit: Yes (3) Metabolic encephalopathy SNOMED Code(s): 38191418 ICD Code: G93.41 - METABOLIC ENCEPHALOPATHY Status: Acute Current Visit: Yes (4) Methamphetamine abuse SNOMED Code(s): 706890677 ICD Code: F15.10 - OTHER STIMULANT ABUSE, UNCOMPLICATED Status: Acute Current Visit: Yes (5) UTI (urinary tract infection) SNOMED Code(s): 73868070 ICD Code: N39.0 - URINARY TRACT INFECTION, SITE NOT SPECIFIED Status: Acute Current Visit: Yes Qualifiers: Urinary tract infection type: acute cystitis Hematuria presence: with hematuria Qualified Code(s): N30.01 - Acute cystitis with hematuria - Patient Instructions Diet: Heart Healthy Diet, Regular Diet as Tolerated Activity: As Tolerated Driving: May Drive Today Showering/Bathing: May Shower Notify Provider of: Fever, Increased Pain, Nausea and/or Vomiting Other/Special Instructions: 1. Recheck with Deny Gordon in 5-7 days. 2. Ultrasound kidneys outpatient due to lesion on CT follow-up recommended by radiology - Discharge Plan *PRESCRIPTION DRUG MONITORING PROGRAM REVIEWED*: Yes *COPY OF PRESCRIPTION DRUG MONITORING REPORT IN PATIENT RASHAAD: Not Applicable Prescriptions/Med Rec: Ciprofloxacin [Ciprofloxacin HCl] 500 mg PO BID #0 tablet traMADol [Ultram] 50 mg PO Q6H PRN #0 tablet PRN Reason: Pain Home Medications: Home Meds . [No Known Home Meds] 1 unit .XX ASDIRECTED 05/21/20 [History] Ciprofloxacin [Ciprofloxacin HCl] 500 mg PO BID #0 tablet 05/21/20 [Rx] traMADol [Ultram] 50 mg PO Q6H PRN #0 tablet 05/21/20 [Rx] Patient Handouts: Viral Gastroenteritis, Adult, [id number], Urinary Tract Infection, Adult, Finding Treatment for Addiction, Fall Prevention in Hospitals, Adult, Venous Thromboembolism Prevention Forms: ED Department Discharge Referrals: PCP,None [Primary Care Provider] - - Discharge Summary/Plan Comment DC Time >30 min.: No - Patient Data Vitals - Most Recent: Last Vital Signs Temp 97.8 F 05/21/20 08:00 Pulse 56 L 05/21/20 08:00 Resp 16 05/21/20 08:00 BP 105/60 05/21/20 08:00 Pulse Ox 100 05/21/20 08:00 Weight - Most Recent: 98 lb I&O - Last 24 hours: Intake & Output 05/21/20 05/21/20 05/21/20 06:59 14:59 22:59 Intake Total 465 Balance 465 Lab Results - Last 24 hrs: Laboratory Results - last 24 hr 05/20/20 05/20/20 05/20/20 Range/Units 17:40 17:40 17:40 WBC 8.9 (4.5-12.0) X10-3/uL RBC 4.75 (3.23-5.20) x10(6)uL Hgb 13.1 (11.5-15.5) g/dL Hct 40.7 (30.0-51.3) % MCV 85.6 (80-96) fL MCH 27.5 L (27.7-33.6) pg MCHC 32.2 (32.2-35.4) g/dL RDW 13.3 (11.5-15.5) % Plt Count 368 (125-369) X10(3)uL MPV 8.0 (7.4-10.4) fL Neut % (Auto) 70.3 (46-82) % Lymph % (Auto) 19.5 (13-37) % [place] % (Auto) 9.3 (4-12) % Eos % (Auto) 1 (1.0-5.0) % Baso % (Auto) 0 (0-2) % Neut # (Auto) 6.3 (1.6-8.3) # Lymph # (Auto) 1.7 (0.6-5.0) # [place] # (Auto) 0.8 (0.0-1.3) # Eos # (Auto) 0.1 (0.0-0.8) # Baso # (Auto) 0.0 (0.0-0.2) # Sodium 141 (135-145) mmol/L Potassium 2.9 L (3.5-5.3) mmol/L Chloride 103 (100-110) mmol/L Carbon Dioxide 25 (21-32) mmol/L BUN 12 (7-18) mg/dL Creatinine 1.1 H (0.55-1.02) mg/dL Est Cr Clr Drug Dosing TNP Estimated GFR (MDRD) 53 L (>60) BUN/Creatinine Ratio 10.9 (9-20) Glucose 93 (80-116) mg/dL Calcium 8.9 (8.6-10.2) mg/dL Magnesium 2.0 (1.8-2.5) mg/dL Total Bilirubin 0.7 (0.1-1.3) mg/dL AST 24 D (5-25) IU/L ALT 7 L D (12-36) U/L Alkaline Phosphatase 73 (56-112) IU/L Total Protein 7.4 (6.0-8.0) g/dL Albumin 3.9 (3.5-5.2) g/dL Globulin 3.5 g/dL Albumin/Globulin Ratio 1.1 Lipase (73-393) U/L Urine Color (YELLOW) Urine Appearance (CLEAR) Urine pH (5.0-6.5) Ur Specific [place] (1.010-1.025) Urine Protein (NEGATIVE) mg/dL Urine Glucose (UA) (NORMAL) mg/dL Urine Ketones (NEGATIVE) mg/dL Urine Occult Blood (NEGATIVE) Urine Nitrite (NEGATIVE) Urine Bilirubin (NEGATIVE) Urine Urobilinogen (NEGATIVE) mg/dL Ur Leukocyte Esterase (NEGATIVE) Urine RBC (0-5) Urine WBC (0-5) Ur Squamous Epith Cells (NS,R,O) Calcium Oxalate Crystal (NS) Urine Bacteria (NS) Urine HCG, Qual (NEGATIVE) Urine Opiates Screen (NEGATIVE) Ur Oxycodone Screen (NEGATIVE) Ur Propoxyphene Screen (NEGATIVE) Ur Barbituates Screen (NEGATIVE) Ur Tricyclics Screen (NEGATIVE) Ur Phencyclidine Scrn (NEGATIVE) Ur Amphetamine Screen (NEGATIVE) Urine MDMA Screen (NEGATIVE) U Benzodiazepines Scrn (NEGATIVE) U Cocaine Metab Screen (NEGATIVE) U Marijuana (THC) Screen (NEGATIVE) Ethyl Alcohol (<0.03) % 05/20/20 05/20/20 05/20/20 Range/Units 17:40 18:15 18:15 WBC (4.5-12.0) X10-3/uL RBC (3.23-5.20) x10(6)uL Hgb (11.5-15.5) g/dL Hct (30.0-51.3) % MCV (80-96) fL MCH (27.7-33.6) pg MCHC (32.2-35.4) g/dL RDW (11.5-15.5) % Plt Count (125-369) X10(3)uL MPV (7.4-10.4) fL Neut % (Auto) (46-82) % Lymph % (Auto) (13-37) % [place] % (Auto) (4-12) % Eos % (Auto) (1.0-5.0) % Baso % (Auto) (0-2) % Neut # (Auto) (1.6-8.3) # Lymph # (Auto) (0.6-5.0) # [place] # (Auto) (0.0-1.3) # Eos # (Auto) (0.0-0.8) # Baso # (Auto) (0.0-0.2) # Sodium (135-145) mmol/L Potassium (3.5-5.3) mmol/L Chloride (100-110) mmol/L Carbon Dioxide (21-32) mmol/L BUN (7-18) mg/dL Creatinine (0.55-1.02) mg/dL Est Cr Clr Drug Dosing Estimated GFR (MDRD) (>60) BUN/Creatinine Ratio (9-20) Glucose (80-116) mg/dL Calcium (8.6-10.2) mg/dL Magnesium (1.8-2.5) mg/dL Total Bilirubin (0.1-1.3) mg/dL AST (5-25) IU/L ALT (12-36) U/L Alkaline Phosphatase (56-112) IU/L Total Protein (6.0-8.0) g/dL Albumin (3.5-5.2) g/dL Globulin g/dL Albumin/Globulin Ratio Lipase 119 (73-393) U/L Urine Color Yellow (YELLOW) Urine Appearance Clear (CLEAR) Urine pH 6.0 (5.0-6.5) Ur Specific [place] 1.015 (1.010-1.025) Urine Protein Negative (NEGATIVE) mg/dL Urine Glucose (UA) Normal (NORMAL) mg/dL Urine Ketones 15 H (NEGATIVE) mg/dL Urine Occult Blood Negative (NEGATIVE) Urine Nitrite Positive H (NEGATIVE) Urine Bilirubin Negative (NEGATIVE) Urine Urobilinogen Normal (NEGATIVE) mg/dL Ur Leukocyte Esterase Large H (NEGATIVE) Urine RBC 5-10 H (0-5) Urine WBC 10-20 H (0-5) Ur Squamous Epith Cells Occasional (NS,R,O) Calcium Oxalate Crystal Few H (NS) Urine Bacteria Moderate H (NS) Urine HCG, Qual Negative (NEGATIVE) Urine Opiates Screen (NEGATIVE) Ur Oxycodone Screen (NEGATIVE) Ur Propoxyphene Screen (NEGATIVE) Ur Barbituates Screen (NEGATIVE) Ur Tricyclics Screen (NEGATIVE) Ur Phencyclidine Scrn (NEGATIVE) Ur Amphetamine Screen (NEGATIVE) Urine MDMA Screen (NEGATIVE) U Benzodiazepines Scrn (NEGATIVE) U Cocaine Metab Screen (NEGATIVE) U Marijuana (THC) Screen (NEGATIVE) Ethyl Alcohol < 0.03 (<0.03) % 05/20/20 05/21/20 05/21/20 Range/Units 18:15 07:04 07:04 WBC 6.6 (4.5-12.0) X10-3/uL RBC 4.42 (3.23-5.20) x10(6)uL Hgb 12.4 (11.5-15.5) g/dL Hct 38.3 (30.0-51.3) % MCV 86.6 (80-96) fL MCH 28.1 (27.7-33.6) pg MCHC 32.5 (32.2-35.4) g/dL RDW 13.4 (11.5-15.5) % Plt Count 298 (125-369) X10(3)uL MPV 7.7 (7.4-10.4) fL Neut % (Auto) 66.7 (46-82) % Lymph % (Auto) 23.4 (13-37) % [place] % (Auto) 7.6 (4-12) % Eos % (Auto) 2 (1.0-5.0) % Baso % (Auto) 1 (0-2) % Neut # (Auto) 4.5 (1.6-8.3) # Lymph # (Auto) 1.5 (0.6-5.0) # [place] # (Auto) 0.5 (0.0-1.3) # Eos # (Auto) 0.1 (0.0-0.8) # Baso # (Auto) 0.0 (0.0-0.2) # Sodium 141 (135-145) mmol/L Potassium 3.5 (3.5-5.3) mmol/L Chloride 107 (100-110) mmol/L Carbon Dioxide 30 (21-32) mmol/L BUN 8 (7-18) mg/dL Creatinine 1.0 (0.55-1.02) mg/dL Est Cr Clr Drug Dosing 48.28 Estimated GFR (MDRD) 59 L (>60) BUN/Creatinine Ratio 8.0 L (9-20) Glucose 92 (80-116) mg/dL Calcium 8.3 L (8.6-10.2) mg/dL Magnesium (1.8-2.5) mg/dL Total Bilirubin (0.1-1.3) mg/dL AST (5-25) IU/L ALT (12-36) U/L Alkaline Phosphatase (56-112) IU/L Total Protein (6.0-8.0) g/dL Albumin (3.5-5.2) g/dL Globulin g/dL Albumin/Globulin Ratio Lipase (73-393) U/L Urine Color (YELLOW) Urine Appearance (CLEAR) Urine pH (5.0-6.5) Ur Specific [place] (1.010-1.025) Urine Protein (NEGATIVE) mg/dL Urine Glucose (UA) (NORMAL) mg/dL Urine Ketones (NEGATIVE) mg/dL Urine Occult Blood (NEGATIVE) Urine Nitrite (NEGATIVE) Urine Bilirubin (NEGATIVE) Urine Urobilinogen (NEGATIVE) mg/dL Ur Leukocyte Esterase (NEGATIVE) Urine RBC (0-5) Urine WBC (0-5) Ur Squamous Epith Cells (NS,R,O) Calcium Oxalate Crystal (NS) Urine Bacteria (NS) Urine HCG, Qual (NEGATIVE) Urine Opiates Screen Negative (NEGATIVE) Ur Oxycodone Screen Negative (NEGATIVE) Ur Propoxyphene Screen Negative (NEGATIVE) Ur Barbituates Screen Negative (NEGATIVE) Ur Tricyclics Screen Negative (NEGATIVE) Ur Phencyclidine Scrn Negative (NEGATIVE) Ur Amphetamine Screen Positive H (NEGATIVE) Urine MDMA Screen Negative (NEGATIVE) U Benzodiazepines Scrn Negative (NEGATIVE) U Cocaine Metab Screen Negative (NEGATIVE) U Marijuana (THC) Screen Negative (NEGATIVE) Ethyl Alcohol (<0.03) % [facility] Results - Last 24 hrs: Microbiology 05/20/20 18:09 Urine Culture - Preliminary Urine, Catheterized Gram Negative Rods Med Orders - Current: Current Medications Ciprofloxacin (Ciprofloxacin Hcl) 500 mg PO BID [facility] Last Admin: 05/21/20 10:06 Dose: 500 mg Documented by: Loperamide HCl (Imodium) 2 mg PO Q4H PRN PRN Reason: Diarrhea Lorazepam (Ativan) 1 mg IV Q8H PRN PRN Reason: Agitation Ondansetron HCl (Zofran Odt) 4 mg PO Q4H PRN PRN Reason: Nausea/Vomiting Sodium Chloride (Saline Flush) 10 ml FLUSH ASDIRECTED PRN PRN Reason: Keep Vein Open Last Admin: 05/20/20 19:31 Dose: 10 ml Documented by: Tramadol HCl (Ultram) 50 mg PO Q6H PRN PRN Reason: Pain Last Admin: 05/21/20 13:34 Dose: 50 mg Documented by: Discontinued Medications Ceftriaxone Sodium (Rocephin) 1 gm IVPUSH ONETIME ONE Stop: 05/20/20 18:26 Last Admin: 05/20/20 19:19 Dose: 1 gm Documented by: Ceftriaxone Sodium (Rocephin) 1 gm IVPUSH Q24H [facility] Hydromorphone HCl (Dilaudid) 0.5 mg IVPUSH ONETIME ONE Stop: 05/20/20 17:29 Last Admin: 05/20/20 17:34 Dose: 0.5 mg Documented by: Sodium Chloride (Normal Saline) 1,000 mls @ 999 mls/hr IV .BOLUS ONE Stop: 05/20/20 18:28 Last Infusion: 05/20/20 18:16 Dose: 50 mls/hr Documented by: Potassium Chloride 20 meq/ (Premix) 100 mls @ 50 mls/hr IV ONETIME ONE Stop: 05/20/20 20:16 Last Admin: 05/20/20 19:19 Dose: 50 mls/hr Documented by: Potassium Chloride/Dextrose/Sod Cl (D5 1/2 Ns W/ 20 Meq/L Kcl) 1,000 mls @ 75 mls/hr IV ASDIRECTED [facility] Last Admin: 05/20/20 22:02 Dose: 75 mls/hr Documented by: Ceftriaxone Sodium 1 gm/ (Sodium Chloride) 50 mls @ 200 mls/hr IV Q24H [facility] Ibuprofen (Motrin) 600 mg PO Q6H PRN PRN Reason: Pain Lorazepam (Ativan) 1 mg IVPUSH ONETIME ONE Stop: 05/20/20 17:57 Last Admin: 05/20/20 18:00 Dose: 1 mg Documented by: Lorazepam (Ativan) Confirm Administered Dose 2 mg .ROUTE .STK-MED ONE Stop: 05/20/20 17:59 Last Admin: 05/20/20 19:16 Dose: Not Given Documented by: Ondansetron HCl (Zofran) 4 mg IVPUSH ONETIME ONE Stop: 05/20/20 17:29 Last Admin: 05/20/20 17:49 Dose: 4 mg Documented by: Ondansetron HCl (Zofran) 4 mg IV Q8H PRN PRN Reason: Nausea/Vomiting
[2020-05-21 17:55] VITALS: BP 116/75; PULSE 84
[2020-05-21] MEDS ORDERED: cefTRIAXone 1 GM in Sodium Chloride 0.9% 50 ML IV SCH (18:00)
[2020-05-21] MEDS ORDERED: cefTRIAXone 1 GM Vial IVPUSH SCH (18:30)
[2020-05-23 06:13] LABS: HIV SCREEN 4TH GENERATION WRFX Non Reactive (Non Reactive)
[2020-05-24 05:10] LABS: CHLAMYDIA TRACHOMATIS, NAA Negative (Negative); NEISSERIA GONORRHOEAE, NAA Negative (Negative)
== END 2020-05-21 23:34 | disposition home or self-care (01) ==
LOC: FB.ED 17:22 → FB.MS 19:49
PROVIDERS: ADMIT Emergency Medicine; ATTEND Family Medicine
DX: K52.9 Noninfective gastroenteritis and colitis, unspecified (principal); N30.01 Acute cystitis with hematuria; F15.10 Other stimulant abuse, uncomplicated; G93.41 Metabolic encephalopathy; E87.6 Hypokalemia; Z88.2 Allergy status to sulfonamides; Z88.5 Allergy status to narcotic agent; Z79.899 Other long term (current) drug therapy
CPT/HCPCS: 36415; 70450; 74176; 80048; 80053; 80305; 80307; 81001; 81025; 83690; 83735; 85025; 86780; 87086; 87088; 87186; 87389; 87491; 87591; 93005; 96361; 96365; 96375; 99285; A9270; J0696; J1170; J2060; J2405; J3480; J7030